=== PATIENT | female | born 1960 | race Caucasian/White ===

== ENCOUNTER 2019-08-15 07:34 | Day surgery (SDC) | payer OTHER ==
[~2019-08-15 07:34] MED LIST: CEPH500 PO; HYDACE5 PO; NAPR500 PO; PROACE100 PO; RXLEVESTKI PO; RXPROACE PO; RXTRAM50 PO
== END 2019-08-15 22:44 | disposition home or self-care (01) ==
LOC: MOI US 07:34
DX: C50.411 Malignant neoplasm of upper-outer quadrant of right female breast (principal)
CPT/HCPCS: 19285; 77065

== ENCOUNTER → 2021-10-18 | Outpatient (CLI) | payer OTHER ==
[~2021-10-18] MED LIST changes: +ARIMIDEX1 M2 PO; +ERGO400 PO; +ROSU10TA PO; +SERT25 PO; +VITAMINS FOR H1 EACH PO
== END ==
LOC: PLD 13:33 → LAB SHORT 13:33
DX: R21 Rash and other nonspecific skin eruption (principal)
CPT/HCPCS: 88312

== ENCOUNTER 2021-12-12 09:27 | Day surgery (SDC) | payer OTHER ==
[~2021-12-12] VITALS: Ht 162.6 cm; Wt 95.8 kg
--- NOTE | 2021-12-12 10:50 | NUR ---
12/12/21 1050 Meggan Sorto TWO ATTEMPTS AT IV. FIRST ATTEMPT AT IV BY TIARRA IN LEFT FOREARM INFILTRATED. SECOND ATTEMOT AT IV BY RN IN LEFT HAND SUCCESSFUL.
--- NOTE | 2021-12-12 14:50 | NUR ---
12/12/21 3070 Sara Soni LATE ENTRY PT SPOKE WITH DR WINN REGARDING HER RESULTS FROM THE PROCEDURE. DR WINN NOTIFIED PT OF POSSIBLE CANCER DIAGNOSIS. PT WAS STOIC AND DID NOT HAVE ANY QUESTIONS. PT REQUESTED THAT RN SHARE INFORMATION WITH HER SON. RN SPOKE WITH HER SON UNTIL ALL QUESTIONS WERE ANSWERED. PT TAKEN TO SON'S CAR VIA WHEELCHAIR.
== END 2021-12-12 14:00 | disposition home or self-care (01) ==
LOC: ORSCSDS 09:27
PROVIDERS: Student in an Organized Health Care Education/Training Program
PROC: 0DB78ZX Excision of Stomach, Pylorus, Via Natural or Artificial Opening Endoscopic, Diagnostic (ICD-10-PCS; principal; 2021-12-12 11:15)
PROC: 0DBN8ZX Excision of Sigmoid Colon, Via Natural or Artificial Opening Endoscopic, Diagnostic (ICD-10-PCS; principal; 2021-12-12 11:15)
PROC: 0DBK8ZX Excision of Ascending Colon, Via Natural or Artificial Opening Endoscopic, Diagnostic (ICD-10-PCS; principal; 2021-12-12 11:15)
PROC: 0DB98ZX Excision of Duodenum, Via Natural or Artificial Opening Endoscopic, Diagnostic (ICD-10-PCS; principal; 2021-12-12 11:15)
PROC: 0DBL8ZX Excision of Transverse Colon, Via Natural or Artificial Opening Endoscopic, Diagnostic (ICD-10-PCS; principal; 2021-12-12 11:15)
PROC: 0DBM8ZX Excision of Descending Colon, Via Natural or Artificial Opening Endoscopic, Diagnostic (ICD-10-PCS; principal; 2021-12-12 11:15)
PROC: 3E0H8KZ Introduction of Other Diagnostic Substance into Lower GI, Via Natural or Artificial Opening Endoscopic (ICD-10-PCS; principal; 2021-12-12 11:15)
DX: K74.60 Unspecified cirrhosis of liver (principal); Z80.0 Family history of malignant neoplasm of digestive organs; Z86.010 Personal history of colon polyps; K29.80 Duodenitis without bleeding; K29.70 Gastritis, unspecified, without bleeding; D12.4 Benign neoplasm of descending colon; D12.3 Benign neoplasm of transverse colon; D12.2 Benign neoplasm of ascending colon; D12.5 Benign neoplasm of sigmoid colon; K76.6 Portal hypertension; K31.89 Other diseases of stomach and duodenum; B96.81 Helicobacter pylori [H. pylori] as the cause of diseases classified elsewhere; E78.5 Hyperlipidemia, unspecified; Z86.19 Personal history of other infectious and parasitic diseases; F17.210 Nicotine dependence, cigarettes, uncomplicated; Z79.899 Other long term (current) drug therapy; R73.03 Prediabetes; Z85.3 Personal history of malignant neoplasm of breast
CPT/HCPCS: 88305; 88342

== ENCOUNTER 2022-02-23 07:43 | Day surgery (SDC) | payer OTHER ==
[~2022-02-23] VITALS: Ht 162.6 cm; Wt 98.2 kg
[2022-02-23] MEDS ORDERED: DOXY100 (08:19)
[2022-02-23] MEDS ORDERED: METR250 (08:19)
[2022-02-23] MEDS ORDERED: BISM300CH (08:19)
[2022-02-23] MEDS ORDERED: OMEP20ER (08:20)
== END 2022-02-23 09:37 | disposition home or self-care (01) ==
LOC: ORSCSDS 07:43
PROVIDERS: Student in an Organized Health Care Education/Training Program
PROC: 0DBN8ZZ Excision of Sigmoid Colon, Via Natural or Artificial Opening Endoscopic (ICD-10-PCS; principal; 2022-02-23 09:00)
DX: K63.5 Polyp of colon (principal); Z86.010 Personal history of colon polyps; K64.8 Other hemorrhoids; K74.60 Unspecified cirrhosis of liver; E78.5 Hyperlipidemia, unspecified; B18.2 Chronic viral hepatitis C; Z80.0 Family history of malignant neoplasm of digestive organs; R73.03 Prediabetes; F41.9 Anxiety disorder, unspecified; F17.210 Nicotine dependence, cigarettes, uncomplicated; Z79.899 Other long term (current) drug therapy
CPT/HCPCS: 88305; J2250; J2704; J7120

== ENCOUNTER 2022-07-31 09:03 | Day surgery (SDC) | payer OTHER ==
[~2022-07-31] VITALS: Ht 162.6 cm; Wt 92.9 kg
[~2022-07-31 09:03] MED LIST changes: +BISM300CH; +DOXY100; +METR250; +OMEP20ER
--- NOTE | 2022-07-31 12:26 | NUR ---
Discharge instructions reviewed with patient. Patient verbalizes understanding. Copy given to patient to take home. Dressing to procedure site clean, dry, intact with no visible drainage, swelling, erythema or bruising noted. Discharged via wheelchair to private car for ride home.
== END 2022-07-31 22:39 | disposition home or self-care (01) ==
LOC: ORSCMMR 09:03 → ORD 10:15 → ORSCMMR 10:15
PROVIDERS: Surgery
PROC: 0JH63WZ Insertion of Totally Implantable Vascular Access Device into Chest Subcutaneous Tissue and Fascia, Percutaneous Approach (ICD-10-PCS; principal; 2022-07-31 10:15)
PROC: 05HM33Z Insertion of Infusion Device into Right Internal Jugular Vein, Percutaneous Approach (ICD-10-PCS; principal; 2022-07-31 10:15)
PROC: B543ZZA Ultrasonography of Right Jugular Veins, Guidance (ICD-10-PCS; principal; 2022-07-31 10:15)
DX: C20 Malignant neoplasm of rectum (principal); I10 Essential (primary) hypertension; F17.210 Nicotine dependence, cigarettes, uncomplicated; E78.00 Pure hypercholesterolemia, unspecified; K74.60 Unspecified cirrhosis of liver; Z79.899 Other long term (current) drug therapy
CPT/HCPCS: 77001; A9270; C1788; J0690; J1642; J2250; J2704; J3010; J7120

== ENCOUNTER → 2024-04-01 | Outpatient (CLI) | payer OTHER | LOC: LAB 17:45 → LAB SHORT 17:45 | DX: R50.9 Fever, unspecified (principal) | CPT/HCPCS: 87077; 87086; 87186 ==